=== PATIENT | male | born 1955 | race Caucasian/White ===

== ENCOUNTER 2023-05-22 14:05 | Emergency (ER) | payer MEDICARE, BC ==
[~2023-05-22] VITALS: Ht 180.3 cm; Wt 77.1 kg
[2023-05-22 18:57] VITALS: BP 153/102
== END 2023-05-22 18:57 | disposition short-term general hospital (02) ==
LOC: ER 14:05
DX: T18.108A Unspecified foreign body in esophagus causing other injury, initial encounter (principal); W44.9XXA Unspecified foreign body entering into or through a natural orifice, initial encounter; I10 Essential (primary) hypertension
CPT/HCPCS: 70360; 96361; 96374; 96375; 99284-25; J1610; J2405; J7030